=== PATIENT | female | born 1990 | race African-American/Black ===

== ENCOUNTER 2016-11-24 14:11 | Emergency (ER) | payer OTHER ==
[~2016-11-24] VITALS: Ht 167.6 cm; Wt 63.6 kg
[2016-11-24 14:13] VITALS: BP 111/71; PULSE 111; RESP 20; TEMP 99.1; O2SAT 98
[2016-11-24] MEDS ORDERED: eye drops (15:27)
--- NOTE | 2016-11-24 15:40 | PD ---
HPI . Right eye pain Chief Complaint: Eye Problems/Injury Time Seen by Provider: 15:31 Travel History International Travel<30 days: No Contact w/Intl Traveler<30days: No Traveled to known affect area: No History of Present Illness HPI The patient presents for treatment of a complication of a previous corneal transplant. The patient underwent a corneal transplant in 2013 in [place]. She states that the suture popped loose as ago. She now has eye pain and photophobia. She rates her pain at 10/10. Pain is exacerbated by light. She contacted her eye doctor in [place] who instructed her to present here for treatment. PFSH Past Medical History ?: Past Surgical History Eye Surgery: Yes (corneal transplant) Social History Alcohol Use: No Tobacco Use: No Substance Use: No Allergies-Medications (Allergen,Severity, Reaction): Coded Allergies: No Known Allergies (Unverified , 11/24/16) Reported Meds & Prescriptions Reported Meds & Active Scripts Active Reported [eye drops] Review of Systems Except as stated in HPI: all other systems reviewed are Neg Eyes: Positive: Blurred Vision, Photophobia, Pain Physical Exam Narrative GENERAL: The patient appears uncomfortable. SKIN: Warm and dry. HEAD: Atraumatic. Normocephalic. EYES: Her right cornea appears irregular. She is photophobic. NECK: Trachea midline. CARDIOVASCULAR: Regular rate and rhythm. RESPIRATORY: No accessory muscle use. MUSCULOSKELETAL: No obvious deformities. No edema. NEUROLOGICAL: Awake and alert. No obvious cranial nerve deficits. Motor grossly within normal limits. Normal speech. PSYCHIATRIC: Appropriate mood and affect; insight and judgment normal. Data Data Last Documented VS Vital Signs Date Time Temp Pulse Resp B/P Pulse Ox O2 Delivery O2 Flow Rate FiO2 11/24/16 14:13 99.1 111 20 111/71 98 Room Air MDM Medical Decision Making Medical Screen Exam Complete: Yes Emergency Medical Condition: Yes Differential Diagnosis Differential diagnosis of eye pain includes but is not limited to conjunctivitis , chemical irritation, corneal abrasion, acute angle-closure glaucoma. Narrative Course Patient presents for a complication from a previous corneal transplant. Specifically, a suture has come loose. Physician Communication Physician Communication Dr. Wallace was consulted. She will see the patient immediately in her office. Diagnosis Primary Impression: Complication of corneal transplant Qualified Code: T86.848 - Other complication of corneal transplant Referrals: Yamileth Wallace MD 1 day Patient Instructions: General Instructions Departure Forms: Tests/Procedures Additional Instructions: Go directly to Dr. Wallace's office Disposition: 01 DISCHARGE HOME Condition: Camille Piper MD Nov 24, 2016 15:40
[2016-11-24] MEDS ORDERED: PRED1SUS RIGHT EYE (16:01)
== END 2016-11-24 15:56 | disposition home or self-care (01) ==
LOC: NEPD 14:11
DX: T86.848 Other complications of corneal transplant (principal)
CPT/HCPCS: 99282